=== PATIENT | male | born 2005 | race Caucasian/White ===

== ENCOUNTER 2025-07-03 22:12 | Emergency (ER) | payer OTHER ==
[~2025-07-03] VITALS: Ht 175.3 cm; Wt 83.2 kg
[2025-07-03] MEDS: NEOSPORIN OINT 0.9 GM PKT TOP ONE (22:40)
[2025-07-03] MEDS: LIDOCAINE W/EPINEPHrine 1% 20 ML VIAL SC ONE (22:40)
[2025-07-03] MEDS ORDERED: BACI500O8 TOP (23:15)
[2025-07-03 23:22] VITALS: BP 131/69; TEMP 98; O2SAT 97
== END 2025-07-03 23:35 | disposition home or self-care (01) ==
LOC: M ED 22:12
DX: S61.412A Laceration without foreign body of left hand, initial encounter (principal); W25.XXXA Contact with sharp glass, initial encounter; Y92.000 Kitchen of unspecified non-institutional (private) residence as the place of occurrence of the external cause; Y93.G1 Activity, food preparation and clean up; Y99.9 Unspecified external cause status; Z79.2 Long term (current) use of antibiotics